=== PATIENT | female | born 1970 | race Caucasian/White ===

== ENCOUNTER 2018-10-04 14:54 | Emergency (ER) | payer OTHER ==
[~2018-10-04] VITALS: Ht 167.6 cm; Wt 86.2 kg
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
[2018-10-04 16:18] LABS: BASO # 0.1 x10^3/uL (0.0-0.2); BASO % 1 % (0-3); EOS # 0.1 x10^3/uL (0.0-0.7); EOS % 1 % (0-3); HEMATOCRIT 46.9 % (36.0-47.0); HEMOGLOBIN 15.7 g/dL (12.0-15.5); LYMPH # 1.8 x10^3/uL (1.0-4.8); LYMPH % 12 % (24-48); MEAN CORPUSCULAR HEMOGLOBIN 32 pg (25-35); MEAN CORPUSCULAR HGB CONC 34 g/dL (31-37); MEAN CORPUSCULAR VOLUME 94 fL (79-100); MONO # 0.9 x10^3/uL (0.0-1.1); MONO % 6 % (0-9); NEUT # 12.1 x10^3uL (1.8-7.7); NEUT % 80 % (31-73); PLATELET COUNT 347 x10^3/uL (140-400); RED BLOOD COUNT 4.97 x10^6/uL (3.50-5.40); RED CELL DISTRIBUTION WIDTH 13.6 % (11.5-14.5)
[2018-10-04 16:38] LABS: ALBUMIN 4.1 g/dL (3.4-5.0); ALBUMIN/GLOBULIN RATIO 1.1 (1.0-1.7); CALCIUM 9.5 mg/dL (8.5-10.1); CREATININE 0.9 mg/dL (0.6-1.0); GFR 67.1; POTASSIUM 3.4 mmol/L (3.5-5.1); TOTAL BILIRUBIN 0.3 mg/dL (0.2-1.0)
[2018-10-04 16:56] LABS: BILIRUBIN,URINE NEG (NEG); CLARITY,URINE CLEAR; COLOR,URINE YELLOW; GLUCOSE,URINE NEG (NEG); NITRITE,URINE NEG (NEG); UROBILINOGEN,URINE 0.2 mg/dL (0.2 mg/dL)
[2018-10-04 17:12] LABS: BACTERIA,URINE 0 /HPF (0-FEW); HYALINE CASTS, URINE OCC /HPF; RBC,URINE OCC /HPF (0-2); SQUAMOUS EPITHELIAL CELL,UR OCC /LPF
[2018-10-04] MEDS ORDERED: HYDR-3165 PO (17:21)
[2018-10-04 17:40] VITALS: BP 149/98
== END 2018-10-04 17:42 | disposition home or self-care (01) ==
LOC: ER 14:57
DX: S20.212A Contusion of left front wall of thorax, initial encounter (principal); R10.31 Right lower quadrant pain; F17.200 Nicotine dependence, unspecified, uncomplicated; V59.59XA Passenger in pick-up truck or van injured in collision with other motor vehicles in traffic accident, initial encounter; Y93.89 Activity, other specified; Y92.488 Other paved roadways as the place of occurrence of the external cause; Y99.8 Other external cause status
CPT/HCPCS: 36415; 71101; 80053; 81001; 85025; 99285